=== PATIENT | male | born 1940 | race Caucasian/White ===

== ENCOUNTER 2021-02-06 09:12 | Outpatient (CLI) | payer MEDICARE, BC | END 2021-02-06 09:13 | disposition home or self-care (01) | LOC: CSHMRI 09:12 | PROVIDERS: ATTEND Neurological Surgery | DX: S23.3XXA Sprain of ligaments of thoracic spine, initial encounter (principal); M99.23 Subluxation stenosis of neural canal of lumbar region; M47.814 Spondylosis without myelopathy or radiculopathy, thoracic region; M47.816 Spondylosis without myelopathy or radiculopathy, lumbar region; M43.16 Spondylolisthesis, lumbar region | CPT/HCPCS: 72110; 72146; 72148 ==

== ENCOUNTER 2021-07-25 09:01 | Emergency (ER) | payer MEDICARE, BC ==
[2021-07-25] MEDS ORDERED: Morphine 4 MG/ML VIAL ONE (09:49)
[2021-07-25 10:22] LABS: Bilirubin Neg (Negative); Blood, Urine 250 (Negative); Clarity Slightly Cloudy (Clear); Glucose, Urine (Dipstick) Normal (Negative); Ketone, Urine Negative (Negative); Leukocyte Negative (Negative); Nitrite Negative (Negative); Protein, Urine (Dipstick) 15 mg/dl (Neg-Trace); Specific Gravity, Urine 1.025 (1.002-1.036); Urobilinogen Normal mg/dL (Less than 2)
[2021-07-25 10:23] LABS: #Eosinphils 0.1 10x3/uL (0.0-0.5); #Monocytes 0.4 10x3/uL (0.0-1.1); #Neutrophils 8.5 10x3/uL (1.5-8.4); %Basophils 0.4 % (0.0-2.0); %Eosinophils 0.6 % (0.0-6.0); %Lymphocytes 12.7 % (18.0-47.0); %Monocytes 3.8 % (0.0-10.0); %Neutrophils 82.2 % (40.0-75.0); Hemoglobin 12.1 g/dL (13.5-17.5); Mean Corpuscular Hemoglobin 23.8 pg (27.0-33.0); Mean Corpuscular Volume 76.6 fl (81.2-95.1); Mean Platelet Volume 10.4 fl (7.4-10.4); Platelet Count 187 10x3/uL (150-450); RBC Distribution Width 16.1 % (11.5-14.5); Red Blood Cell (RBC) Count 5.09 10x6/uL (4.32-5.72); White Blood Cell (WBC) Count 10.4 10x3/uL (3.5-10.5)
[2021-07-25 10:28] LABS: RBC/HPF Greater than 50 HPF (0-3); WBC/HPF 0-3 HPF (0-3)
[2021-07-25 10:29] LABS: Bacteria/HPF Rare-Few HPF (None Seen); Calcium Oxalate Crystals Rare HPF (None Seen); Mucous/LPF Rare LPF (<2+); Squamous Epithelial 0-3 HPF (0-3)
[2021-07-25 10:30] LABS: Transitional Epithelial 0-3 HPF (None Seen)
[2021-07-25 10:40] LABS: ALT (SGPT) 19 U/L (8-55); AST (SGOT) 18 U/L (5-34); Albumin 3.9 g/dL (3.4-4.8); Alkaline Phosphatase 48 U/L (40-110); Anion Gap 15 mmol/L (10-20); BUN (Urea Nitrogen) 18 mg/dL (8.4-25.7); Bilirubin, Total 1.2 mg/dL (0.2-1.2); Calc. Creatinine Clearance 0 mL/min (70-130); Calcium 9.7 mg/dL (7.8-10.44); Carbon Dioxide 26 mmol/L (23-31); Chloride 105 mmol/L (98-107); Globulin 2.8 g/dL (2.4-3.5); Glucose 140 mg/dL (83-110); Lipase 37 U/L (8-78); Potassium 3.9 mmol/L (3.5-5.1); Protein, Total 6.7 g/dL (5.8-8.1); Sodium 142 mmol/L (136-145)
[2021-07-25] MEDS ORDERED: Ketorolac Tromethamine 30 MG/ML VIAL ONE (11:21)
== END 2021-07-25 11:22 | disposition home or self-care (01) ==
LOC: CSHERS 09:01
DX: N20.0 Calculus of kidney (principal); E27.9 Disorder of adrenal gland, unspecified; I10 Essential (primary) hypertension; K21.9 Gastro-esophageal reflux disease without esophagitis; E78.00 Pure hypercholesterolemia, unspecified; I25.10 Atherosclerotic heart disease of native coronary artery without angina pectoris; Z79.899 Other long term (current) drug therapy; Z95.5 Presence of coronary angioplasty implant and graft
CPT/HCPCS: 74176; 80053; 81003; 81015; 83690; 85025; 93005; 96374; 96375; J1885; J2270

== ENCOUNTER 2023-02-08 08:30 | Outpatient (CLI) | payer MEDICARE, BC ==
[2023-02-08] MEDS ORDERED: Iopamidol 300 61% 100 ML VIAL FS ONE (10:46)
== END 2023-02-08 08:31 | disposition home or self-care (01) ==
LOC: CSHCT 08:30
PROVIDERS: ATTEND Urology
DX: D35.01 Benign neoplasm of right adrenal gland (principal); E27.9 Disorder of adrenal gland, unspecified; N28.1 Cyst of kidney, acquired
CPT/HCPCS: 74170; 82565

== ENCOUNTER 2025-08-14 08:55 | Outpatient (CLI) | payer MEDICARE ==
[2025-08-14] MEDS ORDERED: Iopamidol 300 61% 100 ML VIAL FS ONE (10:10)
== END 2025-08-14 08:56 | disposition home or self-care (01) ==
LOC: CSHCT 08:55
PROVIDERS: ATTEND Internal Medicine
DX: C34.11 Malignant neoplasm of upper lobe, right bronchus or lung (principal); E27.8 Other specified disorders of adrenal gland; N28.9 Disorder of kidney and ureter, unspecified
CPT/HCPCS: 71260; 74177